=== PATIENT | male | born 1950 | race American Indian/Alaskan Native ===

== ENCOUNTER 2016-11-23 18:43 | Emergency (ER) | payer BC ==
--- NOTE | 2016-11-23 22:35 | Emergency Department Report ---
ED Eye Problem HPI - General Chief complaint: Eye Problems Stated complaint: EYE RED Time Seen by Provider: 11/23/16 21:54 Source: patient Mode of arrival: Ambulatory Limitations: No Limitations - History of Present Illness Initial comments: he is a 66-year-old male with a history of elevated blood pressure controlled with medication who presents to ED complaining of right eye redness 1 day. Patient states he woke up this morning and saw that inside was bloody shot. He denies taking any medications other than his blood pressure medicine. Patient states he has not taken his blood pressure the past couple days and took a dose of 6 AM this morning. He denies itching, drainage, pain, loss of vision, blurry vision. He denies fevers/chills/nausea/vomiting/abdominal pain/dizziness. MD chief complaint: eye redness -: This morning Onset Description: sudden Location: right eye Place: home If Injury: none Eye Symptoms: redness Severity: moderate Associated Symptoms: denies: neck pain, nausea/vomiting, cough, fever, shortness of breath Treatments Prior to Arrival: OTC eye drops - Related Data Home Medications Medication Instructions Recorded Confirmed Last Taken Lisinopril 20 mg PO DAILY 11/23/16 11/23/16 Unknown Allergies Allergy/AdvReac Type Severity Reaction Status Date / Time No Known Allergies Allergy Unverified 11/23/16 19:43 ED Review of Systems ROS: Stated complaint: EYE RED Other details as noted in HPI Constitutional: denies: chills, fever Eyes: denies: eye pain, eye discharge, vision change ENT: denies: ear pain, throat pain, dental pain, hearing loss, congestion Respiratory: denies: cough, shortness of breath, wheezing Cardiovascular: denies: chest pain, palpitations Endocrine: no symptoms reported Gastrointestinal: denies: abdominal pain, nausea, diarrhea Genitourinary: denies: urgency, dysuria Musculoskeletal: denies: back pain, joint swelling, arthralgia Skin: denies: rash, lesions Neurological: denies: headache, weakness, paresthesias Psychiatric: denies: anxiety, depression Hematological/Lymphatic: denies: easy bleeding, easy bruising ED Past Medical Hx - Past Medical History Hx Hypertension: Yes Hx Arthritis: Yes - Surgical History Additional Surgical History: left knee surgery - Social History Smoking Status: Never Smoker Substance Use Type: None - Medications Home Medications: Home Medications Medication Instructions Recorded Confirmed Last Taken Type Lisinopril 20 mg PO DAILY 11/23/16 11/23/16 Unknown History ED Physical Exam - General Limitations: No Limitations General appearance: alert, in no apparent distress - Head Head exam: Present: atraumatic, normocephalic - Eye Eye exam: Present: normal appearance, PERRL, EOMI, conjunctival injection. Absent: scleral icterus, nystagmus, periorbital swelling, periorbital tenderness Pupils: Present: normal accommodation. Absent: unequal, miosis, mydriatic - Expanded Eye Exam Expanded Eyelids: Normal Inspection: Left, Erythema: Right Pupils: Regular, Round: Bilateral, Reactive: Bilateral Sclera/Conjunctival: Normal Inspection: Left, Injection: Right, Hemorrhage: Right IOP (R) in mmH IOP measured with: Tonopen - ENT ENT exam: Present: mucous membranes moist - Neck Neck exam: Present: normal inspection - Respiratory Respiratory exam: Present: normal lung sounds bilaterally. Absent: respiratory distress - Cardiovascular Cardiovascular Exam: Present: regular rate, normal rhythm. Absent: systolic murmur, diastolic murmur, rubs, gallop - GI/Abdominal GI/Abdominal exam: Present: soft, normal bowel sounds - Rectal Rectal exam: Present: deferred - Extremities Exam Extremities exam: Present: normal inspection - Back Exam Back exam: Present: normal inspection - Neurological Exam Neurological exam: Present: alert, oriented X3 - Psychiatric Psychiatric exam: Present: normal affect, normal mood - Skin Skin exam: Present: warm, dry, intact, normal color. Absent: rash ED Course Vital Signs 11/23/16 11/23/16 11/24/16 19:38 23:24 01:04 Temperature 99 F Pulse Rate 74 96 H 60 Respiratory 16 18 18 Rate Blood Pressure 168/92 Blood Pressure 168/92 180/90 165/98 [Left] O2 Sat by Pulse 100 98 99 Oximetry ED Medical Decision Making - Medical Decision Making 66-year-old male presents with subconjunctival hemorrhage of the left eye ED course: Discussed normal eye exam the patient. Patient denies and refuses intraocular pressure of the left eye stating he has no complaints on the left eye does not want it checked. Visual acuity performed by nurse bilaterally, no deficit, see nurse note Discussed the patient will follow-up with his eye clinic sooner rather than later. Patient states his eye clinic is out of at [facility] Discussed the patient if any worsening of symptoms such as blurred vision or loss to return to ED Discussed the patient to be compliant with his blood pressure medication. Discussed the patient to not take an aspirin for the next week or so Discussed follow-up with his primary care physician for blood pressure management. Discussed the patient to be compliant with his medication and not skip days. Patient took blood pressure medication in the ED 11:40 PM Blood pressure is elevated prior to discharge but a symptomatic Patient is alert and oriented 3 is in no acute distress he understands instructions are given and states he will follow-up. Critical care attestation.: If time is entered above; I have spent that time in minutes in the direct care of this critically ill patient, excluding procedure time. ED Disposition Clinical Impression: Subconjunctival hemorrhage of left eye, Chronic hypertension not affecting current episode of care Disposition: DC-01 TO HOME OR SELFCARE Is pt being admited?: No Does the pt Need Aspirin: No Condition: Stable Instructions: Subconjunctival Hemorrhage (ED), Chronic Hypertension (ED), Hypertension (ED) Additional Instructions: Make an appointment to follow up with your eye doctor at [facility] If worsening symptoms return to ED Referrals: PRIMARY CARE, [Primary Care Provider] - 3-5 Days LIZA LARSEN MD [Staff Physician] - 3-5 Days Forms: Work/School Release Form(ED) Time of Disposition: 23:43
[2016-11-23] MEDS ORDERED: APRESOLINE PO ONE (23:27)
[2016-11-24 01:05] VITALS: BP 165/98
== END 2016-11-24 01:05 | disposition home or self-care (01) ==
LOC: ED 18:43
DX: H11.32 Conjunctival hemorrhage, left eye (principal); I10 Essential (primary) hypertension; M19.90 Unspecified osteoarthritis, unspecified site